=== PATIENT | male | born 1975 | race Caucasian/White ===

== ENCOUNTER 2016-09-19 02:44 | Emergency (ER) | payer OTHER ==
[~2016-09-19] VITALS: Ht 182.9 cm; Wt 86.0 kg
[~2016-09-19 02:44] MED LIST: ACET325T33 PO; CPRHC10OT BOTH EARS; FAMO-18 PO; HYD25 PO; IBUP800T25 PO
[2016-09-19 02:51] VITALS: Ht 182.9 cm; Wt 86.0 kg
[2016-09-19] MEDS ORDERED: ONDANSETRON 4 MG INJ IV STA (04:21)
[2016-09-19] MEDS ORDERED: DICLOFENAC SODIUM 37.5 MG/ML VIAL IV STA (04:21)
[2016-09-19] MEDS ORDERED: morphine 2 MG INJ IV STA (04:21)
[2016-09-19] MEDS ORDERED: SOD CHLORIDE 0.9% 1,000 ML IV STA (04:21)
[2016-09-19 05:40] LABS: ADD UMIC YES; URINE BILIRUBIN (Dip) NEGATIVE (NEGATIVE); URINE BLOOD (Dip) TRACE (NEGATIVE); URINE COLOR LT. YELLOW (YELLOW); URINE GLUCOSE (Dip) NEGATIVE (NEGATIVE); URINE KETONES (Dip) NEGATIVE (NEGATIVE); URINE LEUKOCYTE ESTERASE (Dip) NEGATIVE (NEGATIVE); URINE NITRITE (Dip) NEGATIVE (NEGATIVE); URINE TOTAL PROTEIN (Dip) TRACE (NEGATIVE); URINE UROBILINOGEN (Dip) 0.2 E.U./dL (0.1-1.0)
--- NOTE | 2016-09-19 05:45 | RADRPT ---
PROCEDURE: Abdominal ultrasound, limited. CLINICAL INDICATION: Abdominal pain. TECHNIQUE: Multiple real-time images were acquired of the patient's right upper abdomen utilizing a high resolution transducer. COMPARISON: None FINDINGS: The liver demonstrates normal echogenicity and size measuring 14.5 cm. There is no focal mass or in trahepatic biliary ductal dilatation. The portal vein is patent. The gallbladder is distended. Th ere is an echogenic gallstone measuring 1.9 x 1.9 cm. There is no pericholecystic fluid or gallblad vanessa wall thickening. The common bile duct measures 4.4 mm in maximal dimension. The pancreas is ob scured by overlying bowel gas. No free fluid is identified. The right kidney is normal size and echogenicity measuring 10.5 cm. There is no focal renal mass or echogenic calculus identified. There is no obstructive uropathy. IMPRESSION: Cholelithiasis without ultrasound evidence of cholecystitis. Distended gallbladder. Pancreas obscured by overlying bowel gas. .Teo Montiel MD, Date Time Electronically viewed and signed by .Teo Montiel MD, MD on 09/19/2016 05:45 .T/
[2016-09-19 05:49] LABS: BASOPHILS % 0.3 % (0.0-2.0); EOSINOPHILS # 0.2 10^3/ul (0.0-0.5); EOSINOPHILS % 2.1 % (0.0-7.0); HEMATOCRIT 46.2 % (42.0-52.0); HEMOGLOBIN 15.6 g/dl (14.0-18.0); LYMPHOCYTES # 1.6 10^3/ul (0.8-2.9); LYMPHOCYTES % 20.4 % (15.0-51.0); MEAN CORPUSCULAR HEMOGLOBIN 29.8 pg (29.0-33.0); MEAN CORPUSCULAR HGB CONC 33.8 g/dl (32.0-37.0); MEAN CORPUSCULAR VOLUME 88.2 fl (82.0-101.0); MEAN PLATELET VOLUME 9.3 fl (7.4-10.4); MONOCYTE # 0.9 10^3/ul (0.3-0.9); MONOCYTES % 10.7 % (0.0-11.0); NEUTROPHIL # 5.3 10^3/ul (1.6-7.5); NEUTROPHILS % 66.5 % (39.0-77.0); PLATELET COUNT 213 10^3/UL (140-440); RED BLOOD COUNT 5.24 10^6/ul (4.70-6.10); RED CELL DISTRIBUTION WIDTH 14.4 % (11.5-14.5)
[2016-09-19 05:50] LABS: CONDITION 1
[2016-09-19 05:51] LABS: ALBUMIN 4.3 g/dl (3.3-4.9)
[2016-09-19 05:54] LABS: BILIRUBIN,INDIRECT 0.3 mg/dl (0-1.1); BILIRUBIN,TOTAL 0.3 mg/dl (0.2-1.3); CREATININE 0.81 mg/dl (0.61-1.24)
[2016-09-19 05:55] LABS: ALBUMIN/GLOBULIN RATIO 1.19; CALCIUM 9.3 mg/dl (8.4-10.2); TOTAL PROTEIN 7.9 g/dl (6.1-8.1)
[2016-09-19] MEDS ORDERED: morphine 4 MG/ML VIAL IV STA (05:58)
[2016-09-19 06:13] LABS: MUCUS,URINE FEW
--- NOTE | 2016-09-19 06:13 | ERD ---
ER Documentation Chief Complaint Date/Time DATE: 09/19/16 TIME: 06:11 Chief Complaint upper abd pain radaiting to back today hx=gall stones HPI This 41-year-old male presented with right upper closure abdominal pain radiating to his back that began today. He is had this before and has been diagnosed with gallstones. He had attempted to get a surgery referral before and somehow it didn't work out. He has had some nausea with no vomiting. Denies any fevers or chills. ROS All systems reviewed and are negative except as per history of present illness. Medications Home Meds Active Scripts Famotidine* (Pepcid*) 20 Mg Tablet, 20 MG PO BID for 4 Days, #30 TAB Prov:CURTIS NOVOA PA-C 05/14/16 Acetaminophen* (Tylenol*) 325 Mg Tablet, 2 TAB PO Q6 Y for PAIN AND OR ELEVATED TEMP, #20 TAB Prov:CURTIS NOVOA PA-C 05/14/16 Ibuprofen* (Ibuprofen*) 800 Mg Tab, 800 MG PO Q6H Y for PAIN, #30 TAB Prov:CURTIS NOVOA PA-C 12/31/15 Ciprofloxacin/Hydrocortisone* (Cipro* HC Otic) 10 Ml Drops, 3 DROP BOTH EARS TID , #1 BOTTLE Prov:CURTIS NOVOA PA-C 12/31/15 Hydrochlorothiazide* (Hydrochlorothiazide*) 25 Mg Tab, 25 MG PO DAILY, #30 TAB Prov:PETE PEDRAZA NP 07/25/15 Hydrochlorothiazide* (Hydrochlorothiazide*) 25 Mg Tab, 25 MG PO DAILY, #30 TAB Prov:GEORGINA JENKINS DO 07/19/15 Allergies Allergies: Coded Allergies: No Known Allergy (Unverified , 12/30/15) PMhx/Soc History of Surgery: Yes (ABD SX FOR [facility]) Anesthesia Reaction: No Hx Neurological Disorder: No Hx Respiratory Disorders: No Hx Cardiac Disorders: No Hx Psychiatric Problems: No Hx Miscellaneous Medical Probl: Yes ([facility]) Hx Alcohol Use: No Hx Substance Use: No Hx Tobacco Use: Yes Smoking Status: Current every day smoker Physical Exam Vitals Vital Signs Date Time Temp Pulse Resp B/P Pulse Ox O2 Delivery O2 Flow Rate FiO2 09/19/16 05:33 98.9 82 18 155/90 100 Room Air 09/19/16 02:51 98.9 72 20 161/102 100 Physical Exam Const: [] No distress Head: Atraumatic Eyes: Normal Conjunctiva ENT: Normal External Ears, Nose and Mouth. Neck: Full range of motion..~ No meningismus. Resp: Clear to auscultation bilaterally Cardio: Regular rate and rhythm, no murmurs Abd: Soft, mild to moderate upper quadrant and epigastric tenderness without guarding or rebound, non distended. Normal bowel sounds Skin: No petechiae or rashes Back: No midline or flank tenderness Ext: No cyanosis, or edema Neur: Awake and alert and oriented 3, no focal deficits Psych: Normal Mood and Affect Result Diagram: 09/19/16 0436 Results 24 hrs Laboratory Tests Test 09/19/16 04:36 Basophils # 0.010^3/ul Basophils % 0.3% Eosinophils # 0.210^3/ul Eosinophils % 2.1% Hematocrit 46.2% Hemoglobin 15.6g/dl Lymphocytes # 1.610^3/ul Lymphocytes % 20.4% Mean Corpuscular Hemoglobin 29.8pg Mean Corpuscular Hemoglobin Concent 33.8g/dl Mean Corpuscular Volume 88.2fl Mean Platelet Volume 9.3fl Monocytes # 0.910^3/ul Monocytes % 10.7% Neutrophils # 5.310^3/ul Neutrophils % 66.5% Nucleated Red Blood Cells # 0.010^3/ul Nucleated Red Blood Cells % 0.0/100WBC Platelet Count 17964^3/UL Red Blood Count 5.2410^6/ul Red Cell Distribution Width 14.4% Urine Bilirubin NEGATIVE Urine Clarity CLEAR Urine Color LT. YELLOW Urine Glucose NEGATIVE% Urine Hemoglobin TRACE Urine Ketones NEGATIVE Urine Leukocyte Esterase NEGATIVE Urine Microscopic RBC Pending Urine Microscopic WBC Pending Urine Nitrite NEGATIVE Urine Specific [place] 1.025 Urine Total Protein TRACE Urine Urobilinogen 0.2 E.U./dL Urine pH 6.0 White Blood Count 8.010^3/ul Current Medications Medications (Trade) Dose Ordered Sig/Angelina Route PRN Reason Start Time Stop Time Status Last Admin Dose Admin Sodium Chloride (NS) 1,000 ml @ 1,000 mls/hr Q1H STAT IV 09/19/16 04:21 09/19/16 05:20 DC 2/5/17 04:43 Morphine Sulfate (morphine) 2 mg ONCE STAT IV 09/19/16 04:21 09/19/16 04:23 DC 09/19/16 04:43 Ondansetron HCl (Zofran Inj) 4 mg ONCE STAT IV 09/19/16 04:21 09/19/16 04:23 DC 09/19/16 04:42 Diclofenac Sodium (Dyloject) 37.5 mg ONCE STAT IV 09/19/16 04:21 09/19/16 04:24 DC 09/19/16 04:42 Morphine Sulfate (morphine) 4 mg ONCE STAT IV 09/19/16 05:58 09/19/16 06:00 DC 09/19/16 06:04 Procedures/MDM Biliary colic in for 21-year-old male with prior history of gallstones. No signs of acute cholecystitis on ultrasound. Chemistries are still pending only followed by the oncoming doctor. No white count or abnormal vital signs to suggest acute infection. Discharging the patient with instructions to follow- up with the general surgeon through his primary care doctor. Diamante Trinidad discharging with [place], naproxen and Zofran. About ultrasound interpretation: Stating gallbladder with no signs of obstruction, no wall thickening, no dilated ducts,colic fluid Departure Diagnosis: Primary Impression: Acute abdominal pain Additional Impression: Biliary colic JAMAAL CARPIO DO Sep 19, 2016 06:13
[2016-09-19] MEDS ORDERED: HYDR-906 PO (06:16)
[2016-09-19] MEDS ORDERED: ONDA4TAB11 PO (06:16)
[2016-09-19] MEDS ORDERED: NAPR-688 PO (06:16)
[2016-09-19 06:27] LABS: POTASSIUM 3.4 mmol/L (3.5-5.1)
[2016-09-19 06:47] VITALS: BP 145/94; PULSE 78; RESP 18; TEMP 98.7
== END 2016-09-19 06:49 | disposition home or self-care (01) ==
LOC: E/R 02:44
DX: R10.11 Right upper quadrant pain (principal); K80.50 Calculus of bile duct without cholangitis or cholecystitis without obstruction; R10.13 Epigastric pain; F17.210 Nicotine dependence, cigarettes, uncomplicated; R40.2142 Coma scale, eyes open, spontaneous, at arrival to emergency department; R40.2252 Coma scale, best verbal response, oriented, at arrival to emergency department; R40.2362 Coma scale, best motor response, obeys commands, at arrival to emergency department; R11.0 Nausea
CPT/HCPCS: 76705; 80053; 81001; 83690; 85025; J2270; J2405; J7030; Z7610; 36415; 81003; 96374; 96375; 96376